=== PATIENT | male | born 1935 | race Caucasian/White ===

== ENCOUNTER 2021-11-22 09:33 | Outpatient (CLI) | payer MEDICARE | END 2021-11-22 09:34 | disposition home or self-care (01) | LOC: CSHMRI 09:33 | PROVIDERS: ATTEND Nurse Practitioner Family | DX: M25.552 Pain in left hip (principal); S32.050A Wedge compression fracture of fifth lumbar vertebra, initial encounter for closed fracture; Z98.890 Other specified postprocedural states; R93.6 Abnormal findings on diagnostic imaging of limbs; S32.000A Wedge compression fracture of unspecified lumbar vertebra, initial encounter for closed fracture | CPT/HCPCS: 72148 ==